=== PATIENT | male | born 1950 | race Caucasian/White ===

== ENCOUNTER 2024-02-13 10:21 | Day surgery (SDC) | payer MEDICARE ==
[2024-02-13] MEDS ORDERED: Sodium Bicarbonate 2.5 MEQ/5 ML SDV ONE (10:37)
[2024-02-13 10:43] VITALS: BP 138/81; TEMP 98.8
== END 2024-02-13 12:29 | disposition home or self-care (01) ==
LOC: CSHRAD 10:21
PROVIDERS: ATTEND Neurological Surgery
PROC: B02BYZZ Computerized Tomography (CT Scan) of Spinal Cord using Other Contrast (ICD-10-PCS; principal; 2024-02-13)
DX: M47.26 Other spondylosis with radiculopathy, lumbar region (principal); M43.16 Spondylolisthesis, lumbar region; M51.16 Intervertebral disc disorders with radiculopathy, lumbar region
CPT/HCPCS: 62284; 72132; 77003